=== PATIENT | male | born 1940 | race Caucasian/White ===

== ENCOUNTER 2019-04-04 08:50 | Emergency (ER) | payer MEDICARE, BC ==
--- NOTE | 2019-04-04 09:10 | ED ---
General Adult HPI - General Chief complaint: Upper Respiratory Infection Stated complaint: cough, pain in mid-right side Time Seen by Provider: 04/04/19 08:52 Source: patient, RN notes reviewed Mode of arrival: ambulatory Limitations: no limitations - History of Present Illness Initial comments: patient is a pleasant 78-year-old male presenting to the emergency department with complaints of right lower chest discomfort. Patient states he has been gladis ling with a sinus infection over the past 10 days or so. Patient recently changed antibiotics. Patient has had a cough associated with this. No difficulty in breathing. Cough seems khurram improving. Patient has developed some discomfort right lateral lower chest over the past couple of days. Dis comfort is greatly increased with cough or movement or deep breaths. Discomfort is more mild at rest. No leg pain or leg swelling. Patient does have history of blood clot years ago associated postsurgical. Patient was on blood thinners for 1 year however is not currently on blood thinners. - Related Data Home Medications Medication Instructions Recorded Confirmed Multivitamin [Men's Multi-Vitamin] 1 tab PO DAILY 06/04/14 04/04/19 Aspirin 325 mg PO DAILY 04/04/19 04/04/19 Azithromycin [Zithromax Z-pack] See Taper PO DAILY 04/04/19 04/04/19 Levothyroxine Sodium [Synthroid] 50 mcg PO DAILY 04/04/19 04/04/19 Previous Rx's Medication Instructions Recorded Cyclobenzaprine [Flexeril] 10 mg PO TID PRN #12 tablet 04/04/19 Allergies Allergy/AdvReac Type Severity Reaction Status Date / Time No Known Allergies Allergy Verified 04/04/19 10:49 Review of Systems ROS Statement: Those systems with pertinent positive or pertinent negative responses have been documented in the HPI. ROS Other: All systems not noted in ROS Statement are negative. Constitutional: Denies: fever Eyes: Denies: eye pain ENT: Denies: ear pain Respiratory: Reports: as per HPI. Denies: dyspnea Cardiovascular: Reports: as per HPI Endocrine: Denies: fatigue Gastrointestinal: Denies: abdominal pain Genitourinary: Denies: dysuria Musculoskeletal: Denies: back pain Skin: Denies: rash Neurological: Denies: weakness Past Medical History Past Medical History: Thyroid Disorder Additional Past Medical History / Comment(s): PE History of Any Multi-Drug Resistant Organisms: None Reported Past Surgical History: Hernia Repair, Joint Replacement Additional Past Surgical History / Comment(s): meniscus repair jose angel. knees, right hip replacement Past Anesthesia/Blood Transfusion Reactions: No Reported Reaction Past Psychological History: No Psychological Hx Reported Smoking Status: Former smoker Past Alcohol Use History: Occasional Past Drug Use History: None Reported General Exam Limitations: no limitations General appearance: alert, in no apparent distress Head exam: Present: normocephalic Eye exam: Present: normal appearance Neck exam: Present: normal inspection Respiratory exam: Present: normal lung sounds bilaterally, chest wall tenderness (right lateral lower chest with tenderness to palpation.). Absent: decreased breath sounds Cardiovascular Exam: Present: regular rate, normal rhythm Expanded Peripheral pulses: 2+: Radial (R), Radial (L), Posterior Tibialis (R), Posterior Tibialis (L), Dorsalis Pedis (R), Dorsalis Pedis (L) GI/Abdominal exam: Present: soft, normal bowel sounds. Absent: distended, tenderness, guarding, rebound, rigid, pulsatile mass Extremities exam: Present: normal inspection. Absent: pedal edema, calf tenderness Back exam: Present: normal inspection Neurological exam: Present: alert Psychiatric exam: Present: normal affect, normal mood Skin exam: Present: normal color Course Vital Signs 04/04/19 04/04/19 08:53 08:57 Temperature 97.8 F Pulse Rate 84 Respiratory 18 20 Rate Blood Pressure 112/69 O2 Sat by Pulse 98 Oximetry EKG Findings - EKG Comments: EKG Findings:: normal sinus rhythm 73. ND 156. QRS 82. QT 400. QTc 440. Normal axis. Normal QRS. No acute ST change. Medical Decision Making - Medical Decision Making Patient reevaluated and resting comfortably in bed. Patient updated on results and need for follow-up. Patient specifically updated on chest x-ray findings. Patient states he has prior history of both lung densities and has seen a lung specialist for this and has had at least 2 CT scans for this. - Lab Data Result diagrams: 04/04/19 09:25 04/04/19 09:25 Lab Results 04/04/19 04/04/19 04/04/19 Range/Units 09:25 09:25 09:25 WBC 4.9 (3.8-10.6) k/uL RBC 5.94 H (4.30-5.90) m/uL Hgb 13.8 (13.0-17.5) gm/dL Hct 42.5 (39.0-53.0) % MCV 71.5 L (80.0-100.0) fL MCH 23.2 L (25.0-35.0) pg MCHC 32.4 (31.0-37.0) g/dL RDW 14.7 (11.5-15.5) % Plt Count 133 L (150-450) k/uL Neutrophils % 55 % Lymphocytes % 27 % Monocytes % 11 % Eosinophils % 2 % Basophils % 3 % Neutrophils # 2.7 (1.3-7.7) k/uL Lymphocytes # 1.3 (1.0-4.8) k/uL Monocytes # 0.5 (0-1.0) k/uL Eosinophils # 0.1 (0-0.7) k/uL Basophils # 0.1 (0-0.2) k/uL Hypochromasia Slight Microcytosis Moderate PT 10.1 (9.0-12.0) sec INR 0.9 (<1.2) APTT 27.0 (22.0-30.0) sec D-Dimer 0.52 (<0.60) mg/L FEU Sodium 137 (137-145) mmol/L Potassium 4.4 (3.5-5.1) mmol/L Chloride 107 (98-107) mmol/L Carbon Dioxide 23 (22-30) mmol/L Anion Gap 7 mmol/L BUN 16 (9-20) mg/dL Creatinine 0.84 (0.66-1.25) mg/dL Est GFR (CKD-EPI)AfAm >90 (>60 ml/min/1.73 sqM) Est GFR (CKD-EPI)NonAf 85 (>60 ml/min/1.73 sqM) Glucose 112 H (74-99) mg/dL Calcium 9.1 (8.4-10.2) mg/dL Total Bilirubin 0.9 (0.2-1.3) mg/dL AST 36 (17-59) U/L ALT 29 (4-49) U/L Alkaline Phosphatase 63 (38-126) U/L Total Protein 6.5 (6.3-8.2) g/dL Albumin 3.7 (3.5-5.0) g/dL Disposition Clinical Impression: Muscle strain, Pleuritic chest pain Disposition: HOME SELF-CARE Condition: Stable Instructions (If sedation given, give patient instructions): Muscle Strain (ED), Chest Wall Pain (ED) Additional Instructions: please follow-up with primary care physician in the next couple days for recheck. Have primary care physician review chest x-ray and previous results. Return for difficulty breathing, fevers, increased pain, worsening symptoms or other concerns. Prescriptions: Cyclobenzaprine [Flexeril] 10 mg PO TID PRN #12 tablet PRN Reason: Pain Is patient prescribed a controlled substance at d/c from ED?: No Referrals: Radha Marie MD [Primary Care Provider] - 1-2 days Time of Disposition: 10:56
[2019-04-04 09:45] LABS: Basophils # (A) 0.1 k/uL (0-0.2); Basophils % (A) 3 %; Eosinophils # (A) 0.1 k/uL (0-0.7); Eosinophils % (A) 2 %; HCT 42.5 % (39.0-53.0); HGB 13.8 gm/dL (13.0-17.5); Hypochromasia Slight; Lymphocytes # (A) 1.3 k/uL (1.0-4.8); Lymphocytes % (A) 27 %; MCH 23.2 pg (25.0-35.0); MCHC 32.4 g/dL (31.0-37.0); MCV 71.5 fL (80.0-100.0); Mean Platelet Volume 8.1; Microcytosis Moderate; Monocytes # (A) 0.5 k/uL (0-1.0); Monocytes % (A) 11 %; Neutrophils # (A) 2.7 k/uL (1.3-7.7); Neutrophils % (A) 55 %; Platelet Count 133 k/uL (150-450); RBC 5.94 m/uL (4.30-5.90); RDW 14.7 % (11.5-15.5); WBC 4.9 k/uL (3.8-10.6)
--- NOTE | 2019-04-04 09:49 | XR ---
EXAMINATION TYPE: XR chest 2V DATE OF EXAM: 04/04/2019 COMPARISON: None INDICATION: Lower right chest pain TECHNIQUE: Frontal and lateral views of the chest are obtained. FINDINGS: The heart size is normal. The pulmonary vasculature is normal. There is fullness at the left hilar region. Irregulare densities in the right midlung frontal project ion.. IMPRESSION: 1. Subtle irregular density at the level of the scapular tip appears to be within the right midlung. CT chest is recommended for additional evaluation. 2. Large somewhat irregular higher density mass at the left hilum may be a calcified lymph node. This could be further evaluated on the CT exam.
[2019-04-04 09:56] LABS: D-Dimer 0.52 mg/L FEU (<0.60); INR 0.9 (<1.2); Prothrombin Time 10.1 sec (9.0-12.0)
[2019-04-04 10:04] LABS: ALT 29 U/L (4-49); AST 36 U/L (17-59); African American GFR (CKD) >90 (>60 ml/min/1.73 sqM); Albumin 3.7 g/dL (3.5-5.0); Alkaline Phosphatase 63 U/L (38-126); Anion Gap 7 mmol/L; Blood Urea Nitrogen 16 mg/dL (9-20); Calcium 9.1 mg/dL (8.4-10.2); Carbon Dioxide 23 mmol/L (22-30); Chloride 107 mmol/L (98-107); Glucose 112 mg/dL (74-99); Non-African American GFR(CKD) 85 (>60 ml/min/1.73 sqM); Potassium 4.4 mmol/L (3.5-5.1); Sodium 137 mmol/L (137-145); Total Bilirubin 0.9 mg/dL (0.2-1.3); Total Protein 6.5 g/dL (6.3-8.2)
[2019-04-04] MEDS ORDERED: CYCLOBENZAPRINE 10MG STARTER 3 TAB BTL PO STA (10:53)
[2019-04-04] MEDS ORDERED: KETOROLAC 30 MG/ML 1 ML VIAL IVP STA (10:53)
[2019-04-04 11:05] VITALS: BP 121/73; PULSE 66; RESP 16; TEMP 98.7
== END 2019-04-04 11:15 | disposition home or self-care (01) ==
LOC: EC 08:50
DX: S29.011A Strain of muscle and tendon of front wall of thorax, initial encounter (principal); J32.9 Chronic sinusitis, unspecified; R05 Cough; E07.9 Disorder of thyroid, unspecified; Z87.891 Personal history of nicotine dependence; Z79.82 Long term (current) use of aspirin; Z79.890 Hormone replacement therapy; X50.9XXA Other and unspecified overexertion or strenuous movements or postures, initial encounter
CPT/HCPCS: 36415; 93005; 85379; 80053; 85025; 85610; 85730; 71046; 99284; 96374; J1885

== ENCOUNTER 2019-12-16 10:37 | Day surgery (SDC) | payer MEDICARE, BC ==
[2019-12-11 12:56] VITALS: BMI 26.0
[2019-12-16 10:55] VITALS: RESP 16; TEMP 84
[2019-12-16] MEDS ORDERED: LIDOCAINE 1% (10MG/ML) FOR IV START INTRADERMA PRN (10:56)
[2019-12-16] MEDS ORDERED: LACTATED RINGERS 1,000 ML IV SCH (10:56)
[2019-12-16] MEDS ORDERED: PROPOFOL 10 MG/ML 20 ML VIAL IV ONE (11:36)
--- NOTE | 2019-12-16 11:45 | P.GSHP ---
History of Present Illness H&P Date: 12/16/19 Chief Complaint: Colon cancer screening 79-year-old male here today for screening colonoscopy. Last colonoscopy 2014. He had a polyp during his colonoscopy [address] Means. No bowel complaints. No family history of colon cancer. Past Medical History Past Medical History: Osteoarthritis (OA), Pulmonary Embolus (PE), Thyroid Disorder Additional Past Medical History / Comment(s): EMPHYSEMA, History of Any Multi-Drug Resistant Organisms: None Reported Past Surgical History: Hernia Repair, Joint Replacement, Orthopedic Surgery Additional Past Surgical History / Comment(s): meniscus repair jose angel. knees, right hip replacement, BLOOD CLOTS REMOVED FROM LUNGS PER GROIN APPROACH Past Anesthesia/Blood Transfusion Reactions: No Reported Reaction Smoking Status: Former smoker - Past Family History Mother Family Medical History: No Reported History Medications and Allergies Home Medications Medication Instructions Recorded Confirmed Type Multivitamin [Men's Multi-Vitamin] 1 tab PO DAILY 06/04/14 12/16/19 History Aspirin 325 mg PO DAILY 04/04/19 12/16/19 History Levothyroxine Sodium [Synthroid] 50 mcg PO DAILY 04/04/19 12/16/19 History Allergies Allergy/AdvReac Type Severity Reaction Status Date / Time No Known Allergies Allergy Verified 12/16/19 10:56 Surgical - Exam Vital Signs Temp Pulse Resp BP Pulse Ox 84 F L 84 16 121/70 95 12/16/19 10:54 12/16/19 10:54 12/16/19 10:54 12/16/19 10:54 12/16/19 10:54 Physical exam: General: Well-developed, well-nourished HEENT: Normocephalic, sclerae nonicteric Abdomen: Nontender, nondistended Extremities: No edema Neuro: Alert and oriented Assessment and Plan (1) Colon cancer screening Narrative/Plan: Will proceed with colonoscopy Current Visit: Yes Status: Acute Code(s): Z12.11 - ENCOUNTER FOR SCREENING FOR MALIGNANT NEOPLASM OF COLON SNOMED Code(s): 245554363
--- NOTE | 2019-12-16 12:02 | P.PCN ---
Date of Procedure: 12/16/19 Procedure(s) Performed: PREOPERATIVE DIAGNOSIS: Colon cancer screening, history of polyps POSTOPERATIVE DIAGNOSIS: Cecal polyp, diverticulosis PROCEDURE: Colonoscopy snare polypectomy ANESTHESIA: MAC SURGEON: Naseem Thao M.D. SPECIMENS: Cecal polyp ENDOSCOPIC PROCEDURE: The patient was placed on the endoscopy table in the left decubitus position. The Olympus colonoscope was inserted into the anus and passed under direct visualization to the base of the cecum. The appendiceal orifice was visualized. From that point the scope was slowly withdrawn inspecting all surfaces carefully. At the cecum just at the valve there was a small superficial polyp that was removed using the snare with cautery technique. The remainder of the cecum, ascending, transverse, descending, sigmoid and rectum appeared normal. There was moderate left-sided diverticulosis noted. Digital rectal examination was normal. The patient was taken to the recovery room in stable condition per anesthesia guidelines. RECOMMENDATIONS: Await biopsy results. Follow-up colonoscopy 5 years.
[2019-12-16 12:19] VITALS: BP 105/79; PULSE 69
== END 2019-12-16 12:42 | disposition home or self-care (01) ==
LOC: ORWHC2ENDO 10:37
PROVIDERS: ATTEND Surgery
DX: Z12.11 Encounter for screening for malignant neoplasm of colon (principal); D12.0 Benign neoplasm of cecum; K57.30 Diverticulosis of large intestine without perforation or abscess without bleeding; Z86.010 Personal history of colon polyps; M19.90 Unspecified osteoarthritis, unspecified site; E07.9 Disorder of thyroid, unspecified; J43.9 Emphysema, unspecified; Z96.641 Presence of right artificial hip joint; Z86.711 Personal history of pulmonary embolism; Z98.890 Other specified postprocedural states; Z87.891 Personal history of nicotine dependence; Z79.82 Long term (current) use of aspirin; Z79.890 Hormone replacement therapy
CPT/HCPCS: 88305; 45385; J2704

== ENCOUNTER → 2022-04-05 | Outpatient (CLI) | payer MEDICARE, BC ==
--- NOTE | 2022-04-05 13:28 | XR ---
EXAMINATION TYPE: XR chest 2V DATE OF EXAM: 04/05/2022 COMPARISON: 04/04/2019 HISTORY: Shortness of breath TECHNIQUE: Frontal and lateral views of the chest are obtained. FINDINGS: Scattered senescent parenchymal changes noted. Hyperinflation compatible with COPD. No evidence for infiltrate. No evidence for atelectasis. Heart size is stable. Evidence of remote granulomatous disease. Mediastinal structures are stable and grossly unremarkable. No evidence for hilar prominence. Degenerative changes dorsal spine. IMPRESSION: 1. No evidence for acute pulmonary disease.
== END | disposition home or self-care (01) ==
LOC: RADXRMAIN 10:51
PROVIDERS: ATTEND Internal Medicine
DX: R05.9 Cough, unspecified (principal); R06.02 Shortness of breath
CPT/HCPCS: 71046